=== PATIENT | male | born 2000 | race Caucasian/White ===

== ENCOUNTER 2021-04-15 09:25 | Emergency (ER) | payer SELFPAY ==
[2021-04-15 09:30] VITALS: BP 146/96; PULSE 87; RESP 16; TEMP 36.4; O2SAT 97
--- NOTE | 2021-04-15 09:38 | ED.GENADUL_ITS ---
Discharge Plan Disposition Patient Disposition: HOME Condition: Improving Discharge Details Clinical Impression: Penile pain, Perineal pain in male Primary Care Provider: John Garcia ED Provider: Radha Solorio Discharge Instructions Instructions: Groin Strain (ED), Groin Pain (ED) Additional Instructions: Drink plenty of fluids and get plenty of rest. Alternate ice and heat to the affected area(s) several times daily for 20 minutes at a time. Alternate tylenol and motrin as needed and directed for pain. You can consider wearing scrotal support over the next week. Follow-up with urology if your symptoms do not improve for further evaluation. Return immediately to the emergency department if you develop any significant worsening or new concerning symptoms such as fever, inability to urinate, testicle pain or swelling, abdominal pain, persistent vomiting or any other concerns. Stand Alone Forms: Work Release Referrals: Daniel Hernandez MD [ [facility] STAFF PHYSICIAN] - Discharge Data Discharge Date/Time-TO BE ENTERED AT DEPARTURE: 04/15/21 11:59 Discharge Physician: Radha Solorio Medical Decision Making 21-year-old male presents with a complaint of constant aching pain within his penis and perineum since yesterday morning. He appears comfortable and nontoxic. Abdomen soft and nontender. No abdominal bulge or palpable mass noted when supine and upon standing. exam normal to inspection but there is tenderness to his penis and bilateral perineum below his scrotum. There is a chronic appearing candidal rash to his bilateral groin, perineum but no evidence of acute cellulitis, trauma, necrotizing fasciitis. History and presentation does not appear consistent with testicular torsion, prostatitis, epididymitis, STD or hernia. Differential diagnosis includes UTI, dehydration, muscle strain. Do not see medication for imaging. Will place an IV, bolus IV fluids, screening labs, urinalysis and give a dose of Toradol and reassess. Labs reviewed and unremarkable. Normal white blood cell count. Normal electrolytes. Urinalysis negative. Urine chlamydia/gonorrhea pending. Patient reassessed and he feels much better and feels good to go home. As his symptoms improved, do not see an indication for imaging at this time. Patient given urology follow-up information if needed. He is advised to alternate ice and heat, tylenol and motrin, and wear scrotal support. Usual and customary return precautions given prior to discharge. Medical Records Medical records reviewed: Yes I reviewed the patient's medical records. Lab Data Lab results reviewed: Yes I reviewed the patient's lab results. Labs: Laboratory Tests Range/Units 04/15/21 04/15/21 04/15/21 09:45 10:07 10:09 WBC (4.4-10.8) 10^3/uL RBC (4.36-5.78) 10^6/uL Hgb (13.5-17.5) g/dL Hct (40.0-50.0) % MCV (80-95) fL MCH (27.0-33.0) pg MCHC (32.0-36.0) % RDW (11.8-14.1) % Plt Count (130-400) 10^3/uL MPV (8.0-11.0) fL Immature Gran % Neutrophils % Lymphocytes % Monocytes % Eosinophils % Basophils % Nucleated RBC % % Absolute Neutrophils (1.2-6.7) 10^3/uL Absolute Lymphocytes (1.2-3.4) 10^3/uL Absolute Monocytes (0.1-0.8) 10^3/uL Absolute Eosinophils (0.0-0.7) 10^3/uL Absolute Basophils (0.0-0.2) 10^3/uL Sodium (136-145) mmol/L 140 Potassium (3.5-5.1) mmol/L 4.2 Chloride (98-107) mmol/L 105 Carbon Dioxide (21.0-32.0) mmol/L 29.1 Anion Gap (3-11) mmol/L 5.9 BUN (7-18) mg/dL 15 Creatinine (0.70-1.30) mg/dL 1.0 Estimated GFR/1.73 m2 (mL/min/1.73m2) >= 60.00 Glucose (74-106) mg/dL 106 Calcium (8.5-10.1) mg/dL 8.9 Total Bilirubin (0.2-1.0) mg/dL 0.5 AST (15-37) U/L 18 ALT (16-63) U/L 28 Alkaline Phosphatase (46-116) U/L 89 Total Protein (6.4-8.2) g/dL 7.4 Albumin (3.4-5.0) g/dL 3.7 Urine Color (Yellow) Yellow Cancelled Urine Clarity (Clear) Sl Cloudy Cancelled Urine pH (5-8) 7.5 Cancelled Ur Specific Hector (1.005-1.025) 1.020 Cancelled Urine Protein (Negative) mg/dL Negative Cancelled Urine Ketones (Negative) mg/dL Negative Cancelled Urine Blood (Negative) Negative Cancelled Urine Nitrite (Negative) Negative Cancelled Urine Bilirubin (Negative) Negative Cancelled Urine Urobilinogen (Up TO 0.2) EU/dL 0.2 Cancelled Ur Leukocyte Esterase (Negative) Negative Cancelled Urine Glucose (Negative) mg/dL Negative Cancelled Range/Units 04/15/21 10:09 WBC (4.4-10.8) 10^3/uL 10.78 RBC (4.36-5.78) 10^6/uL 4.76 Hgb (13.5-17.5) g/dL 15.0 Hct (40.0-50.0) % 44.3 MCV (80-95) fL 93.1 MCH (27.0-33.0) pg 31.5 MCHC (32.0-36.0) % 33.9 RDW (11.8-14.1) % 12.8 Plt Count (130-400) 10^3/uL 236 MPV (8.0-11.0) fL 10.3 Immature Gran % 0.4 Neutrophils % 79.6 Lymphocytes % 10.9 Monocytes % 7.7 Eosinophils % 1.2 Basophils % 0.2 Nucleated RBC % % 0 Absolute Neutrophils (1.2-6.7) 10^3/uL 8.59 H Absolute Lymphocytes (1.2-3.4) 10^3/uL 1.17 L Absolute Monocytes (0.1-0.8) 10^3/uL 0.83 H Absolute Eosinophils (0.0-0.7) 10^3/uL 0.13 Absolute Basophils (0.0-0.2) 10^3/uL 0.02 Sodium (136-145) mmol/L Potassium (3.5-5.1) mmol/L Chloride (98-107) mmol/L Carbon Dioxide (21.0-32.0) mmol/L Anion Gap (3-11) mmol/L BUN (7-18) mg/dL Creatinine (0.70-1.30) mg/dL Estimated GFR/1.73 m2 (mL/min/1.73m2) Glucose (74-106) mg/dL Calcium (8.5-10.1) mg/dL Total Bilirubin (0.2-1.0) mg/dL AST (15-37) U/L ALT (16-63) U/L Alkaline Phosphatase (46-116) U/L Total Protein (6.4-8.2) g/dL Albumin (3.4-5.0) g/dL Urine Color (Yellow) Urine Clarity (Clear) Urine pH (5-8) Ur Specific Hector (1.005-1.025) Urine Protein (Negative) mg/dL Urine Ketones (Negative) mg/dL Urine Blood (Negative) Urine Nitrite (Negative) Urine Bilirubin (Negative) Urine Urobilinogen (Up TO 0.2) EU/dL Ur Leukocyte Esterase (Negative) Urine Glucose (Negative) mg/dL HPI General Mode of arrival: ambulatory . Date/Time Provider Initiated Documentation: 04/15/21 09:26 . Limitations to Documentation: no limitations . Information obtained by: patient . HPI Narrative: Patient is a 21-year-old male who presents with a complaint of penile pain since yesterday. Patient states shortly after waking yesterday morning he felt an aching pain throughout his penis. He also feels like he has pain underneath his scrotum area in his perineum which feels similar and aching. He denies any pain in his testicles or bilateral groin. He states he had sexual intercourse with his girlfriend the night before but denies any injury, known exposure to STDs and uses protection occasionally. He denies any fever, dysuria, urinary urgency, frequency, hesitancy, penile discharge. He states he drank a 12 pack of beer and a few shots of liquor the night before the symptoms started and states he has not been drinking much water. He denies any abdominal pain, injury, recent travel, new meds, new soaps, new lotions, new detergents. Patient states he has not had the symptoms before. Related Data Allergies Allergy/AdvReac Type Severity Reaction Status Date / Time No Known Allergies Allergy Verified 04/15/21 09:36 General Stated Complaint: Male Reproductive Problem SHEILA: 3 Review of Systems All systems reviewed & are unremarkable except as noted in HPI and below Constitutional Constitutional: Reports as per HPI, Denies chills and Denies fever(s) Eyes Eyes: Denies blurry vision ENT Ears, Nose, Mouth, and Throat: Denies dizziness, Denies sore throat and Denies throat swelling Cardiovascular Cardiovascular: Denies chest pain and Denies dyspnea Respiratory Respiratory: Denies cough and Denies dyspnea Gastrointestinal Gastrointestinal: Denies abdominal pain, Denies diarrhea and Denies vomiting Genitourinary Genitourinary: Denies hematuria, Reports genital pain and Denies dysuria Musculoskeletal Musculoskeletal: Denies back pain and Denies numbness Integumentary/Breasts Skin/Breast: Denies lesions and Denies rash Neurologic Neurologic: Denies dizziness, Denies localized weakness and Denies numbness Allergic/Immunologic Allergic/Immunologic: Denies throat swelling [facility] Medical History (Updated 04/15/21 @ 11:48 by Radha Solorio DO) No significant past medical history Surgical History (Updated 04/15/21 @ 10:07 by Radha Solorio DO) No significant past surgical history Family History Mother No problems noted. Father No problems noted. Other Substance abuse MGM Alcohol abuse MGM Heart disease MGF, PGF Hyperlipidemia MGM Mental disorder MGM - bipolar Neoplasm MGF - colon Asthma Brother, MGGF, MGF Other Myocardial infarction Social History Smoking/Tobacco Use Status: Current every day Tobacco Type: cigarettes Quit status: not considering quitting Smoking risk assessment performed?: Yes Alcohol Intake: current Alcohol Intake frequency: a few times a week Substance use type: marijuana Details: 2-3 times a week Education Level: high school Do you feel safe at home: Yes Do you feel safe in your relationship?: Yes Exam Const General: cooperative, healthy appearing and no acute distress HENMT Head: normal to inspection Face and sinus: normal facial exam Eyes General: appearance normal, both eyes and all related structures EOM: EOM intact bilaterally Neck Neck: normal visual inspection and No submandibular swelling Lymphatic: no lymphadenopathy noted Chest Chest: normal inspection of the chest and no tenderness Resp Effort & Inspection: normal respiratory effort and able to speak in complete sentences Auscultation: clear to auscultation bilaterally Cardio Rate: regular rate Rhythm: regular rhythm GI Inspection: normal to inspection Palpation: soft, not firm, not rigid and nontender Auscultation: normal bowel sounds Male General Exam: Yes normal external exam, No ecchymosis, No edema, No erythema, No hernia and No lesions Penis: other (tender to palp of penis w/o erythema, edema, ecchymoses, rash, discharge) Scrotum: scrotum normal, no ecchymosis, not edematous, not erythematous and no scrotal swelling Testes: normal, no testicular mass, no testicular swelling and no testicular tenderness Other: Tenderness to palpation of b/l perineum. There is a chronic appearing ca ndidal rash to the bilateral perineum which is faintly erythematous, nontender, without induration, fluctuance, drainage or bleeding. Male genitals images: 1. Tender Skin General skin exam: no rashes or lesions noted Neuro General: patient alert, patient awake and patient oriented x3 Cognition: normal cognition Speech: speech normal Motor: muscle tone normal throughout Sensory Exam: no sensory deficits noted Extrem General: normal to inspection, full ROM, capillary refill normal, no calf tenderness bilaterally and no edema Psych Appearance: grossly normal Mental Status: mental status grossly normal Speech and Movement: speech and movement normal Affect: normal affect Course Vital Signs Vital signs: Vital Signs Temperature 97.6 F 04/15/21 09:30 Pulse 87 04/15/21 09:30 Respiratory Rate 16 04/15/21 09:30 Blood Pressure 146/96 H 04/15/21 09:30 Pulse Oximetry 97 04/15/21 09:30 Temperature 97.6 F 04/15/21 09:30 Pulse 87 04/15/21 09:30 Respiratory Rate 16 04/15/21 09:30 Respiratory Effort Non-Labored 04/15/21 09:35 Blood Pressure 146/96 H 04/15/21 09:30 Blood Pressure Position Sitting 04/15/21 09:30 Pulse Oximetry 97 04/15/21 09:30 Oxygen Delivery Method Room Air 04/15/21 09:30 Oxygen Flow Rate 0 04/15/21 09:30 Pain Level 7 04/15/21 09:30
[2021-04-15 09:50] LABS: Bilirubin Negative (Negative); Blood Negative (Negative); Clarity Sl Cloudy (Clear); Glucose Negative (Negative); Ketones Negative (Negative); Leukocyte Esterase Negative (Negative); Nitrite Negative (Negative); Urobilinogen 0.2 EU/dL (Up TO 0.2); pH 7.5 (5-8)
[2021-04-15 10:16] LABS: Abs Immature Grans 0.04 10^3/uL (0.0-0.06); Absolute Basophil Count 0.02 10^3/uL (0.0-0.2); Absolute Eosinophil Count 0.13 10^3/uL (0.0-0.7); Absolute Lymphocyte Count 1.17 10^3/uL (1.2-3.4); Absolute Monocyte Count 0.83 10^3/uL (0.1-0.8); Absolute Neutrophil Count 8.59 10^3/uL (1.2-6.7); Basophils % 0.2; Eosinophils % 1.2; HCT 44.3 % (40.0-50.0); Immature Grans % 0.4; Lymphocytes % 10.9; MCH 31.5 pg (27.0-33.0); MCHC 33.9 % (32.0-36.0); MCV 93.1 fL (80-95); MPV 10.3 fL (8.0-11.0); Monocytes % 7.7; Neutrophils % 79.6; Nucleated RBC 0 %; Platelet Count 236 10^3/uL (130-400); RBC 4.76 10^6/uL (4.36-5.78); RDW 12.8 % (11.8-14.1); WBC 10.78 10^3/uL (4.4-10.8)
[2021-04-15] MEDS: Normal Saline 1,000 ML 1000 ML IV (10:27)
[2021-04-15] MEDS: Ketorolac 30 MG/ML VIAL IVP (10:28)
[2021-04-15 10:29] LABS: ALT 28 U/L (16-63); AST 18 U/L (15-37); Albumin 3.7 g/dL (3.4-5.0); Alkaline Phosphatase 89 U/L (46-116); Anion Gap 5.9 mmol/L (3-11); BUN 15 mg/dL (7-18); Bilirubin, Total 0.5 mg/dL (0.2-1.0); CO2 29.1 mmol/L (21.0-32.0); Calcium 8.9 mg/dL (8.5-10.1); Chloride 105 mmol/L (98-107); Glucose 106 mg/dL (74-106); Potassium 4.2 mmol/L (3.5-5.1); Sodium 140 mmol/L (136-145); Total Protein 7.4 g/dL (6.4-8.2)
[2021-04-15 11:49] VITALS: BP 129/81; PULSE 85; RESP 18; O2SAT 98
[2021-04-17 15:26] LABS: Chlamydia Result Negative (Negative); GC Result Negative (Negative)
== END 2021-04-15 11:59 | disposition home or self-care (01) ==
PROVIDERS: Emergency Provider Physician Assistant; PCP Pediatrics
DX: N48.89 Other specified disorders of penis (principal); R10.2 Pelvic and perineal pain
CPT/HCPCS: 36415; 80053; 87491; 87591; 96361; 96374; 99284; 81003; 85025; 99283; J1885

== ENCOUNTER 2021-04-21 10:23 | Emergency (ER) | payer SELFPAY ==
[2021-04-21 10:34] VITALS: BP 145/74; PULSE 91; RESP 16; TEMP 36.8; O2SAT 99
[2021-04-21] MEDS: Tetracaine 0.5% 4 ML BTL (10:50)
[2021-04-21] MEDS: Fluorescein STRIPS 100/BOX 1 MG (10:50)
[2021-04-21] MEDS: Balanced Salt Solution 15 ML BTL (10:50)
--- NOTE | 2021-04-21 11:13 | ED.GENADUL_ITS ---
Discharge Plan Disposition Patient Disposition: HOME Condition: Stable Discharge Details Clinical Impression: Conjunctivitis Primary Care Provider: John Garcia ED Provider: Abhilash Kay Home Meds and New Rx's Prescriptions: New erythromycin 5 mg/gram (0.5 %) ointment 0.5 inch ophthalmic (eye) QID Qty: 3.5 RF: 0 Discharge Instructions Instructions: Conjunctivitis (ED) Additional Instructions: Erythromycin as directed. [id number] Tylenol and/or Motrin as directed for discomfort. Be sure to thoroughly wash your hands and avoid touching your eyes this is highly contagious. Please watch for new or worsening symptoms and return to the ER for any concerns. Lastly, if symptoms are not improving over the next 2-3 days I do recommend following up with your clinical nurse specialist. Medical Decision Making 21-year-old gentleman presents complaining of right eye pain and irritation now with redness and drainage. Visual acuities bilaterally 20/20, 20/20 left eye, 20/50 right eye. No signs of foreign body or fluorescein uptake. There is no evidence of discomfort with movement of his eye. No evidence of periorbital or orbital cellulitis. Clinical presentation most likely that of conjunctivitis. Plan is to treat with Ilotycin. Patient was encouraged to return to the ER for new or worsening symptoms also to follow-up with his clinical nurse specialist if symptoms are not improving over the next several days. Patient is comfortable with this plan and has no additional questions or concerns. Medical Records Medical records reviewed: Yes I reviewed the patient's medical records. HPI General Mode of arrival: ambulatory . Date/Time Provider Initiated Documentation: 04/21/21 11:13 . Limitations to Documentation: no limitations . Information obtained by: patient . HPI Narrative: This is a 21-year-old male, denies significant past medical history, does not wear contacts or glasses, reports that his right eye became irritated approximately 1 week ago. He was using [id number] Visine drops with some relief. Over the past few days the eye has become more irritated, red, and now has been crusting in the morning and having a drainage during the day. Reports that because of the drainage he feels as though his vision is different but denies any true blurry or double vision. Denies any facial swelling, fever, or any other concerns or complaints. 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 Related Data Home Medications Medication Instructions Recorded Confirmed erythromycin 0.5 inch OPHTHALMIC (EYE) QID #3.5 04/21/21 g Previous Rx's Medication Instructions Recorded erythromycin 0.5 inch OPHTHALMIC (EYE) QID #3.5 04/21/21 g Allergies Allergy/AdvReac Type Severity Reaction Status Date / Time No Known Allergies Allergy Verified 04/21/21 10:42 General Stated Complaint: EyeProblem SHEILA: 2 Review of Systems Constitutional Constitutional: Denies fever(s) and Denies headache(s) Eyes Eyes: Denies blurry vision, Denies change in vision, Reports irritation and Reports itchy eyes ENT Ears, Nose, Mouth, and Throat: Denies headache(s) and Denies neck pain Musculoskeletal Musculoskeletal: Denies neck pain Integumentary/Breasts Skin/Breast: Denies erythema Neurologic Neurologic: Denies headache(s) Allergic/Immunologic Allergic/Immunologic: Reports itchy eyes PFSH Medical History No significant past medical history Surgical History No significant past surgical history Family History Mother No problems noted. Father No problems noted. Other Substance abuse MGM Alcohol abuse MGM Heart disease MGF, PGF Hyperlipidemia MGM Mental disorder MGM - bipolar Neoplasm MGF - colon Asthma Brother, MGGF, MGF Other Myocardial infarction Social History Smoking/Tobacco Use Status: Current every day Tobacco Type: cigarettes Quit status: not considering quitting Smoking risk assessment performed?: Yes Alcohol Intake: current Alcohol Intake frequency: a few times a week Substance use type: marijuana Details: 2-3 times a week Education Level: high school Do you feel safe at home: Yes Do you feel safe in your relationship?: Yes Exam Const General: cooperative, healthy appearing, comfortable and no acute distress Orientation: alert and awake [facility] Head: normal to inspection, normocephalic and atraumatic General nose exam: external nose normal Face and sinus: normal facial exam Mouth: moist mucous membranes Eyes Alignment and Position: alignment normal Periorbital: periorbital findings normal Eyelids: eyelids normal and other (Right eyelid flipped for examination) Conjunctivae: conjunctival abnormality right conjunctival injection diffuse and discharge purulent Sclera: sclerae normal Cornea: corneas normal and fluorescein used (No uptake) Pupils: PERRL EOM: EOM intact bilaterally Direct ophthalmoscopy: normal light reflex Neck Neck: normal visual inspection, trachea midline and supple Resp Effort & Inspection: normal respiratory effort and able to speak in complete sentences Skin General skin exam: no rashes or lesions noted Neuro General: patient alert, patient awake, moves all extremities and no focal motor deficits Sensory Exam: no sensory deficits noted Psych Appearance: grossly normal Mental Status: mental status grossly normal Course Vital Signs Vital signs: Vital Signs Temperature 36.8 C 04/21/21 10:34 Pulse 91 H 04/21/21 10:34 Respiratory Rate 16 04/21/21 10:34 Blood Pressure 145/74 H 04/21/21 10:34 Pulse Oximetry 99 04/21/21 10:34 Temperature 36.8 C 04/21/21 10:34 Temperature Source Temporal Artery Scan 04/21/21 10:34 Pulse 91 H 04/21/21 10:34 Respiratory Rate 16 04/21/21 10:34 Respiratory Effort 04/21/21 10:34 Blood Pressure 145/74 H 04/21/21 10:34 Blood Pressure Position Supine 04/21/21 10:34 Pulse Oximetry 99 04/21/21 10:34 Oxygen Delivery Method Room Air 04/21/21 10:34 Oxygen Flow Rate 0 04/21/21 10:34 Pain Level 8 04/21/21 10:34
[2021-04-21] MEDS: Erythromycin Ophth Oint 3.5 GM TUBE OD (15:01)
== END 2021-04-21 12:10 | disposition home or self-care (01) ==
PROVIDERS: Emergency Provider Physician Assistant; PCP Pediatrics
DX: R10.31 Right lower quadrant pain (principal)
CPT/HCPCS: 99283

== ENCOUNTER 2021-10-03 06:37 | Emergency (ER) | payer SELFPAY ==
[2021-10-03 06:45] VITALS: BP 156/83; PULSE 94; RESP 18; TEMP 36.3; O2SAT 100
--- NOTE | 2021-10-03 06:46 | ED.GENADUL_ITS ---
Discharge Plan Disposition Patient Disposition: HOME Condition: Stable Discharge Details Clinical Impression: Contusion of hand, left Primary Care Provider: John Garcia ED Provider: Radha Solorio Discharge Instructions Instructions: Contusion in Adults (ED) Additional Instructions: you can have 1000mg tylenol and 600mg ibuprofen every 6 hours as needed follow up with your primary care provider if pain continues in a week if you feel more ill or have severe worsening of pain return to the emergency department Stand Alone Forms: Work Release Referrals: Michael Vargas MD [ [facility] STAFF PHYSICIAN] - Medical Decision Making <Doug Sullivan MD - Last Filed: 10/03/21 07:17> 21 yo male who denies chronic medical problems comes in with chief complaint of left hand pain. He was at work carrying wood panel and while setting it down on a table to crushed the left hand, denies falls or other injuries. He denies head pain, neck pain, chest pain, abdominal pain, leg pain or right arm pain, only has pain in the left hand proximal to the pinky and ring finger. Full rom of the fingers and wrist and normal pulses as well as sensation. He is tender in the hand just proximal to the pinky and ring fingers, no palpable or visible deformity. will obtian xray to further evaluate. No wrist tenderness so do not feel wrist xrays indicated and no snuff box tenderness xray negative on my read, if radiology agrees will treat as contusion and advised prn ibuprofen and tylenol, and if pain continues in a week to follow up with pcp. Return precautions given Differential Diagnosis Differential Diagnosis: left hand contusion vs sprain vs fracture Imaging Data Radiologic Study: Attestation: I personally reviewed and interpreted this imaging study as follows: Imaging: X-Ray My impression: no acute findings <Radha Solorio DO - Last Filed: 10/03/21 11:46> 0730 --Case endorsed to follow-up on x-ray if any abnormalities noted. Xray notes: IMPRESSION: Subtle contour irregularity involving the proximal aspect of the proximal phalanx of the 2nd digit at the ulnar aspect of the bone. This may reflect an old fracture deformity. Clinical correlation however recommended to assess for tenderness at the 2nd metacarpophalangeal joint. Patient assessed at bedside and there is no tenderness in the proximal aspect of the proximal phalanx of the second digit. Do not suspect acute fracture. A Band-Aid was placed at the site of abrasion on dorsal hand and Pollo wrap applied. Advised to follow-up with his PCP as needed and with orthopedics with any concerns. Usual and customary return precautions given prior to discharge. Medical Records Medical records reviewed: Yes I reviewed the patient's medical records. Imaging Data Radiologic Study: Radiologist's impression: XR Left Hand Exam date and time: 10/03/2021 6:47 AM Age: 21 years old Clinical indication: Injury or trauma; Other: Dropped table o hand; Sprain or strain; Left; Patient HX: Pain, S/P crush injury. Hand caught between two tables. TECHNIQUE: Imaging protocol: XR Left hand. Views: 3 or more views. COMPARISON: No relevant prior studies available. FINDINGS: Bones/joints: Subtle contour irregularity involving the proximal aspect of the proximal phalanx of the 2nd digit at the ulnar aspect of the bone. This may reflect an old fracture deformity. Clinical correlation however recommended to assess for tenderness at the 2nd metacarpophalangeal joint Soft tissues: Normal. IMPRESSION: Subtle contour irregularity involving the proximal aspect of the proximal phalanx of the 2nd digit at the ulnar aspect of the bone. This may reflect an old fracture deformity. Clinical correlation however recommended to assess for tenderness at the 2nd metacarpophalangeal joint. HPI <Doug Sullivan MD - Last Filed: 10/03/21 07:17> General Mode of arrival: ambulatory . Date/Time Provider Initiated Documentation: 10/03/21 06:41 . Limitations to Documentation: no limitations . Information obtained by: patient . History of Present Illness 21 year old M presents to the emergency department with the chief complaint of left hand pain, described as moderate, Quality is described as aching, and is localized to the left and upper extremity. Patient reports no radiation. Patient started experiencing this hour(s) (1) and it has been constant. Rest improves symptom(s), Movement worsens symptoms . Patient notes no other symptoms.. Patient did receive the following treatments prior to arrival, none Related Data Allergies Allergy/AdvReac Type Severity Reaction Status Date / Time No Known Allergies Allergy Verified 10/03/21 06:48 General SHEILA: 2 Review of Systems <Doug Sullivan MD - Last Filed: 10/03/21 07:17> All systems reviewed & are unremarkable except as noted in HPI and below Constitutional Constitutional: Denies chills, Denies fever(s) and Denies weakness Cardiovascular Cardiovascular: Denies chest pain and Denies dyspnea Respiratory Respiratory: Denies cough and Denies dyspnea Gastrointestinal Gastrointestinal: Denies abdominal pain, Denies nausea and Denies vomiting Neurologic Neurologic: Denies weakness PFSH <Doug Sullivan MD - Last Filed: 10/03/21 07:17> All Active Problems (Updated 10/03/21 @ 06:52 by Doug Sullivan MD) Penile pain (Acute) Perineal pain in male (Acute) Conjunctivitis (Acute) Contusion of hand, left (Acute) Neck pain, acute (Acute) Medical History No significant past medical history Surgical History No significant past surgical history Family History Mother No problems noted. Father No problems noted. Other Substance abuse MGM Alcohol abuse MGM Heart disease MGF, PGF Hyperlipidemia MGM Mental disorder MGM - bipolar Neoplasm MGF - colon Asthma Brother, MGGF, MGF Other Myocardial infarction Social History Smoking/Tobacco Use Status: Current every day Tobacco Type: cigarettes Quit status: not considering quitting Smoking risk assessment performed?: Yes Alcohol Intake: current Alcohol Intake frequency: a few times a week Substance use type: marijuana Details: 2-3 times a week Education Level: high school Do you feel safe at home: Yes Do you feel safe in your relationship?: Yes Exam <Doug Sullivan MD - Last Filed: 10/03/21 07:17> Const General: no acute distress Orientation: alert HENMT Head: normal to inspection Ears: external ears normal General nose exam: external nose normal Mouth: moist mucous membranes Eyes General: appearance normal, both eyes and all related structures Neck Neck: normal visual inspection Resp Effort & Inspection: normal respiratory effort and able to speak in complete sentences Cardio Rate: regular rate Skin General skin exam: no rashes or lesions noted Neuro General: patient alert and patient oriented x3 Extrem General: full ROM and capillary refill normal Psych Mental Status: mental status grossly normal Sign Out <Doug Sullivan MD - Last Filed: 10/03/21 07:17> Sign Out Data: Sign Out Comment: pending radiology read Last updated by Doug Sullivan MD at 10/03/21 07:04
--- NOTE | 2021-10-03 07:02 | DI.RAD_ITS ---
Exam(s) XR HAND LT COMPLETE EXAM: XR HAND LT COMPLETE CLINICAL HISTORY: pain s/p crush injury TECHNIQUE: COMPARISON: No exams were available for comparison FINDINGS: Three views were obtained. There is mild deformity of the base of the proximal phalanx of the index finger, this most likely represents an old healed injury, clinical correlation is requested regarding any acute injury at this site. No other bony abnormality seen. IMPRESSION: RADIATION DOSE DELIVERED: Total DLP
--- NOTE | 2021-10-03 07:29 | DI.VRAD_ITS ---
PROCEDURE INFORMATION: Exam: XR Left Hand Exam date and time: 10/03/2021 6:47 AM Age: 21 years old Clinical indication: Injury or trauma; Other: Dropped table o hand; Sprain or strain; Left; Patient HX: Pain, S/P crush injury. Hand caught between two tables. TECHNIQUE: Imaging protocol: XR Left hand. Views: 3 or more views. COMPARISON: No relevant prior studies available. FINDINGS: Bones/joints: Subtle contour irregularity involving the proximal aspect of the proximal phalanx of the 2nd digit at the ulnar aspect of the bone. This may reflect an old fracture deformity. Clinical correlation however recommended to assess for tenderness at the 2nd metacarpophalangeal joint Soft tissues: Normal. IMPRESSION: Subtle contour irregularity involving the proximal aspect of the proximal phalanx of the 2nd digit at the ulnar aspect of the bone. This may reflect an old fracture deformity. Clinical correlation however recommended to assess for tenderness at the 2nd metacarpophalangeal joint Dictated and Authenticated by: Dago Macdonald MD. Ordering:OZZY Camacho MD
== END 2021-10-03 08:15 | disposition home or self-care (01) ==
PROVIDERS: Emergency Provider Physician Assistant; PCP Pediatrics
DX: S60.222A Contusion of left hand, initial encounter (principal); W23.0XXA Caught, crushed, jammed, or pinched between moving objects, initial encounter; Y99.0 Civilian activity done for income or pay
CPT/HCPCS: 99283; 73130

== ENCOUNTER 2021-11-19 16:56 | Outpatient (REF) | payer SELFPAY ==
[2021-11-21 19:31] LABS: COVID-19 RT-PCR UVMMC Result Positive (Negative)
== END 2021-11-19 16:57 | disposition home or self-care (01) ==
LOC: LBN 16:56
PROVIDERS: Visit Provider Nurse Practitioner Family
DX: J02.9 Acute pharyngitis, unspecified (principal); Z20.822 Contact with and (suspected) exposure to COVID-19
CPT/HCPCS: U0003; 87070

== ENCOUNTER 2023-03-17 02:57 | Outpatient (CLI) | payer BC, SELFPAY ==
--- NOTE | 2023-03-17 15:37 | DI.RAD_ITS ---
Exam(s) XR CHEST 2V PA LATERAL EXAM: XR CHEST 2V PA LATERALz CLINICAL HISTORY: HEMOPTYSIS, R04.2 TECHNIQUE: 2D digital imaging was performed. COMPARISON: No exams were available for comparison FINDINGS: HEART: Normal size. Aorta: Not dilated. PULMONARY VASCULATURE: Normal. LUNGS: Clear. PLEURAL SPACE: No pleural effusion or pneumothorax. BONE:Unremarkable for age. IMPRESSION: No acute abnormality. DATA REPOSITORY: RADIATION DOSE DELIVERED:
== END 2023-03-17 03:17 ==
PROVIDERS: Visit Provider Family Medicine
DX: R04.2 Hemoptysis (principal)
CPT/HCPCS: 71046